=== PATIENT | female | born 1950 | race Caucasian/White ===

== ENCOUNTER 2016-10-02 07:15 | Outpatient (CLI) | payer OTHER ==
[2015-03-03 19:43] VITALS: BMI 33.3
--- NOTE | 2016-10-02 08:25 | US ---
EXAM: RENAL ULTRASOUND, BILATERAL HISTORY: Chronic kidney disease, stage III FINDINGS: Ultrasound renal, bilateral. Brar-scale ultrasound and color Doppler imaging was perform ed. Exam was described as technically limited secondary to body habitus. The right kidney measures 10.0 x 4.1 x 3.8 centimeters. The left kidney measures 8.5 x 4.1 x 4.0 centimeters. The kidneys appeared have normal cortical volume and echogenicity without hydronephrosis or gross co rtical mass. Urinary bladder was less than optimally distended although grossly unremarkable other than probable circumferential mild wall thickening. IMPRESSION: 1. Probable mild circumferential urinary bladder wall thickening. Consider chronic cystitis or par tial urinary bladder outlet obstruction. 2. Kidneys grossly within normal limits.
== END 2016-10-02 07:16 | disposition home or self-care (01) ==
LOC: RAD 07:15
PROVIDERS: ATTEND Family Medicine
DX: N18.3 Chronic kidney disease, stage 3 (moderate) (principal)
CPT/HCPCS: 76770